=== PATIENT | female | born 1995 | race Caucasian/White ===

== ENCOUNTER 2021-05-09 10:28 | Outpatient (RCR) | payer BC, SELFPAY ==
[2021-04-27 13:55] LABS: Beta HCG Quantitative 271.51 mIU/ML
[2021-04-29 15:02] LABS: Beta HCG Quantitative 227.73 mIU/ML
[2021-05-09 11:32] LABS: Beta HCG Quantitative 111.88 mIU/ML
== END 2021-07-26 23:59 | disposition home or self-care (01) ==
LOC: ANHLAB 10:28
PROVIDERS: Visit Provider Obstetrics & Gynecology
DX: O20.0 Threatened abortion (principal); O36.0130 Maternal care for anti-D [Rh] antibodies, third trimester, not applicable or unspecified; Z3A.00 Weeks of gestation of pregnancy not specified
CPT/HCPCS: 36415; 84702; 85461